=== PATIENT | female | born 1965 | race Asian ===

== ENCOUNTER 2020-09-23 10:29 | Inpatient (IN) | payer OTHER ==
[~2020-09-23] VITALS: Ht 152.4 cm; Wt 65.1 kg
[2020-09-23 10:35] VITALS: BP 124/86
[2020-09-23 11:21] LABS: ABSOLUTE NEUTROPHILS 3.5 thou/uL (1.4-8.2); EOSINOPHILS 1.3 % (0.0-3.0); HEMATOCRIT 53.1 % (37.0-47.0); HEMOGLOBIN 17.1 gm/dL (12.0-15.0); LYMPHOCYTES 29.2 % (24.0-44.0); MCH 29.7 pg (26.0-34.0); MCHC 32.3 g/dL (28.0-37.0); MONOCYTES 8.9 % (1.0-8.0); PLATELET COUNT 249 thou/uL (150-400); POLYS 59.6 % (36.0-66.0); RBC 5.77 mil/uL (4.20-5.00); RDW 14.6 % (10.5-14.5); WBC 5.9 thou/uL (4.0-11.0)
[2020-09-23 11:26] LABS: CALCIUM 9.2 mg/dL (8.5-10.1); CREATININE 1.2 mg/dL (0.6-1.0); POTASSIUM 3.5 mmol/L (3.5-5.1)
[2020-09-23 11:37] LABS: ALBUMIN 2.7 g/dL (3.4-5.0); TOTAL BILIRUBIN 0.9 mg/dL (0.2-1.0); TOTAL PROTEIN 7.1 g/dL (6.4-8.2); TROPONIN-I 0.16 ng/mL (<0.06)
[2020-09-23 14:27] VITALS: BP 118/82
[2020-09-23 14:37] VITALS: BP 122/76
--- NOTE | 2020-09-23 15:24 | 2DMMODE ---
[facility] [place] [address] 2 D/M-MODE ECHOCARDIOGRAM Name: ANDIE CASILLAS Room #: 170-8 ADM IN .R.#: [id number] Admission: 09/23/20 Attend Phys: Placido Keith MD Discharge: Date of : 67 Report #: [id number] THIS REPORT FOR: cc: ROXANNA - No family physician/PCP ROXANNA - No family physician/PCP Cristino Mckeon MD ~ APPROVED REPORT Study performed: 09/23/2020 14:15:20 EXAM: Comprehensive 2D, Doppler, and color-flow Echocardiogram Patient Location: ER Status: routine BSA: 1.60 HR: 120 bpm BP: 118/82 mmHg Rhythm: Tachycardia Other Information Study Quality: Good Echo Enhancing Agent Indication: Endocardial border delineation/Rule out thrombus Agent(s) / Amount(s) Used: Optison 4 cc 2D Dimensions RVDd: 37.44 mm IVSd: 7.84 (7-11mm) LVOT Diam: 18.79 (18-24mm) LVDd: 55.14 mm PWd: 8.90 (7-11mm) Ascending Ao: 31.96 (22-36mm) LVDs: 50.32 (25-40mm) Left Atrium: 36.59 (27-40mm) Aortic Root: 27.48 mm Volumes Left Atrial Volume (Systole) Single Plane 4CH: 44.77 mL Single Plane 2CH: 62.19 mL LA ESV Index: 36.00 mL/m2 Aortic Valve AoV Peak Waldo.: 0.91 m/s AO Peak Gr.: 3.32 mmHg LVOT Max P.53 mmHg LVOT Max V: 0.62 m/s [facility] [address] [place] [address] 2 D/M-MODE ECHOCARDIOGRAM Name: ANDIE CASILLAS Room #: 170-8 [facility] IN ..#: [id number] Admission: 09/23/20 Attend Phys: Placido Keith, Discharge: Date of : 67 Report #: [id number] SIM Vmax: 1.88 cm2 Mitral Valve MV Decel. Time: 79.32 ms MV E Max Waldo.: 1.34 m/s Pulmonary Valve PV Peak Waldo.: 0.70 m/s PV Peak Gr.: 1.94 mmHg Tricuspid Valve TR Peak Waldo.: 3.17 m/s RAP Estimate: 15.00 mmHg TR Peak Gr.: 40.24 mmHg PA Pressure: 55.00 mmHg Left Ventricle Left ventricle is at the upper limits of normal. There is global hypokinesis of the left ventricle. There is normal left ventricular wall thickness. Left ventricular systolic function is severely decreased. Apical thrombus is present. LVEF is 20%. This study is not technically sufficient to allow evaluation of the LV diastolic function. Right Ventricle The right ventricle is normal size. Right ventricle is mildly hypokinetic. Atria Mild biatrial enlargement. Aortic Valve The aortic valve is normal in structure. Mildly calcified. Trace aortic regurgitation. There is no aortic valvular stenosis. Mitral Valve The mitral valve is normal in structure. Mild to moderate mitral regurgitation. Tricuspid Valve The tricuspid valve is normal in structure. Mild to moderate tricuspid regurgitation. Estimated PAP is 55mmHg. Pulmonic Valve The pulmonary valve is normal in structure. Mild pulmonic regurgitation. Great Vessels [facility] [address] [place] [address] 2 D/M-MODE ECHOCARDIOGRAM Name: ANDIE CASILLAS Room #: 170-8 ADM IN M.R.#: [id number] Admission: 09/23/20 Attend Phys: Placido Keith, Discharge: Date of : 67 Report #: [id number] The aortic root is normal in size. The ascending aorta is normal in size. IVC is dilated and collapses >50% with inspiration. Pericardium Small Pericardial effusion. Bilateral pleural effusions noted. <Conclusion> Left ventricle is at the upper limits of normal. Left ventricular systolic function is severely decreased. LVEF is 20%. There is global hypokinesis of the left ventricle. The right ventricle is normal size. Right ventricle is mildly hypokinetic. Mild biatrial enlargement. The aortic valve is normal in structure. Mildly calcified. Trace aortic regurgitation. The mitral valve is normal in structure. Mild to moderate mitral regurgitation. The tricuspid valve is normal in structure. Mild to moderate tricuspid regurgitation. Estimated PAP is 55mmHg. The pulmonary valve is normal in structure. Mild pulmonic regurgitation. The aortic root is normal in size. Small Pericardial effusion. Bilateral pleural effusions noted. Apical thrombus is present. <ELECTRONICALLY SIGNED> By: Cristino Mckeon MD 09/23/20 1524 1524 1524 Cristino Mckeon MD /INF
[2020-09-23 15:30] VITALS: BP 125/88
[2020-09-23 16:20] LABS: FOLIC ACID 29.1 ng/mL (8.6-58.9)
[2020-09-23 20:30] VITALS: BP 100/67
[2020-09-24 00:31] VITALS: BP 101/79
[2020-09-24 02:18] LABS: URINE BILIRUBIN 1+ (Negative); URINE BLOOD NEGATIVE (Negative); URINE CLARITY CLEAR; URINE COLOR YELLOW; URINE GLUCOSE-RANDOM* NEGATIVE (Negative); URINE KETONES NEGATIVE (Negative); URINE LEUKOCYTES-REFLEX TRACE (Negative); URINE NITRITE-REFLEX NEGATIVE (Negative); URINE PROTEIN (DIPSTICK) 1+ (Negative)
[2020-09-24 02:26] LABS: SQUAMOUS 4-10 Moderate /LPF (0-3)
[2020-09-24 02:27] LABS: BACTERIA-REFLEX 1-9 Few /HPF (None Seen); CRYSTALS None Seen /LPF (None Seen); HYALINE CASTS 0-3 Few /LPF (None Seen); MUCUS 0-3 Light strn/LPF (None Seen); URINE RBC 0-2 Rare /HPF (0-2); URINE WBC-REFLEX 0-5 Rare /HPF (0-5)
[2020-09-24 04:45] VITALS: BP 104/74
[2020-09-24 05:14] LABS: BASOPHILS 1.3 % (0.0-2.0); EOSINOPHILS 2.3 % (0.0-3.0); HEMATOCRIT 50.9 % (37.0-47.0); HEMOGLOBIN 16.4 gm/dL (12.0-15.0); LYMPHOCYTES 38.2 % (24.0-44.0); MCH 29.9 pg (26.0-34.0); MCHC 32.2 g/dL (28.0-37.0); MCV 92.9 fL (80.0-100.0); MONOCYTES 9.9 % (1.0-8.0); PLATELET COUNT 254 thou/uL (150-400); POLYS 48.3 % (36.0-66.0); RBC 5.48 mil/uL (4.20-5.00); RDW 14.2 % (10.5-14.5); WBC 6.3 thou/uL (4.0-11.0)
[2020-09-24 05:18] LABS: ANION GAP 7 mmol/L (7-16); BUN 12 mg/dL (7-18); CHLORIDE 101 mmol/L (98-107); CHOLESTEROL 224 mg/dL (<200); CO2 32 mmol/L (21-32); CREATININE 1.1 mg/dL (0.6-1.0); GLUCOSE 130 mg/dL (74-106); HDL CHOLESTEROL 65 mg/dL (>40); LDL CHOLESTEROL 146 mg/dL (<100); MAGNESIUM 1.1 mg/dL (1.8-2.4); SODIUM 140 mmol/L (136-145); TC:HDL 3.4 Ratio (Not establshd); TRIGLYCERIDE 68 mg/dL (<150); VLDL 14 mg/dL (<40)
[2020-09-24 05:53] LABS: POTASSIUM 2.7 mmol/L (3.5-5.1); SERUM ASSESSMENT Clear
--- NOTE | 2020-09-24 07:11 | EKG ---
[address] [place] [address] ELECTROCARDIOGRAM REPORT Name: ANDIE CASILLAS Room #: 215- ADM IN M.R.#: [id number] Admission: 09/23/20 Attend Phys: Placido Keith MD Discharge: Date of : 67 Report #: [id number] [facility] ED Test Date: 2020-09-23 Test Time: 10:40:04 Pat Name: ANDIE CASILLAS Department: Room: [facility] Gender: F Distribution Manager: MELODY : 1965 Requested By: Mio Childs Order Number: [id number] MD: Jose Carlos Kiran Measurements Intervals [place] Rate: 125 P: -22 AL: 194 QRS: -21 QRSD: 79 T: 142 QT: 323 QTc: 466 Interpretive Statements Sinus tachycardia Borderline prolonged AL interval LAE, consider biatrial enlargement Borderline left axis deviation Anterior infarct, old Nonspecific T abnormalities, lateral leads No previous ECG available for comparison Electronically Signed On 09-24-2020 7:10:50 JD EDWARDS DEVELOPER by Jose Carlos Kiran [email or web address] <ELECTRONICALLY SIGNED> By: Jose Carlos Kiran MD, FACC 09/24/20 0710 1040 1040 Jose Carlos Kiran MD, [facility] /EPI
[2020-09-24 07:42] VITALS: BP 115/82
[2020-09-24 08:25] VITALS: BP 115/82
[2020-09-24 11:46] VITALS: BP 101/713
[2020-09-24 20:15] VITALS: BP 103/71
[2020-09-25 00:01] VITALS: BP 111/70
[2020-09-25 03:30] LABS: HEMATOCRIT 50.9 % (37.0-47.0); HEMOGLOBIN 16.6 gm/dL (12.0-15.0); MCH 29.8 pg (26.0-34.0); MCHC 32.7 g/dL (28.0-37.0); MCV 91.3 fL (80.0-100.0); RBC 5.58 mil/uL (4.20-5.00); RDW 14.3 % (10.5-14.5); WBC 8.3 thou/uL (4.0-11.0)
[2020-09-25 04:06] LABS: ALBUMIN 2.3 g/dL (3.4-5.0); CALCIUM 8.7 mg/dL (8.5-10.1); CREATININE 1.1 mg/dL (0.6-1.0); MAGNESIUM 1.4 mg/dL (1.8-2.4); TOTAL BILIRUBIN 1.3 mg/dL (0.2-1.0); TOTAL PROTEIN 6.2 g/dL (6.4-8.2); TROPONIN-I 0.16 ng/mL (<0.06)
[2020-09-25 04:10] LABS: POTASSIUM 3.5 mmol/L (3.5-5.1)
[2020-09-25 04:45] VITALS: BP 106/79
[2020-09-25 07:30] VITALS: BP 102/62
[2020-09-25 11:31] VITALS: BP 79/49
[2020-09-25 11:39] LABS: GLYCOHEMOGLOBIN (HGB A1C) 12.9
[2020-09-25 15:15] VITALS: BP 94/65
[2020-09-25 19:49] VITALS: BP 95/69
[2020-09-26] VITALS (8 sets, daily range): BP systolic 80–108; BP diastolic 54–76
[2020-09-26 03:46] LABS: CALCIUM 8.4 mg/dL (8.5-10.1)
[2020-09-27 03:05] LABS: GLYCOHEMOGLOBIN (HGB A1C) 13.7 % (4.8-5.6)
[2020-09-27 04:01] VITALS: BP 91/58
[2020-09-27 07:33] VITALS: BP 105/75
--- NOTE | 2020-09-27 07:36 | EKG ---
[address] [address] ELECTROCARDIOGRAM REPORT Name: ANDIE CASILLAS Room #: 215-P ADM IN M.R.#: [id number] Admission: 09/23/20 Attend Phys: Placido Keith MD Discharge: Date of : 67 Report #: [id number] [facility] Test Date: 2020-09-25 Test Time: 07:21:15 Pat Name: ANDIE CASILLAS Department: Room: 215 Gender: F Patient Account Liaison: MARGOT : 1965 Requested By: Robyn Juarez Order Number: [id number] MD: Jose Carlos Kiran Measurements Intervals [place] Rate: 84 P: 31 [place]: 159 QRS: -38 QRSD: 96 T: 267 QT: 441 QTc: 522 Interpretive Statements Sinus rhythm Left axis deviation Anterolateral infarct, age indeterminate Prolonged QT interval Compared to ECG 09/23/2020 10:40:04 Prolonged QT interval now present Sinus tachycardia no longer present T-wave abnormality no longer present Myocardial infarct finding still present Electronically Signed On 09-27-2020 7:36:26 REAL ESTATE UTILIZATION OFFICER by Jose Carlos Kiran [email or web address] <ELECTRONICALLY SIGNED> By: Jose Carlos Kiran MD, FAC 09/27/2036 0 0 Jose Carlos Kiran MD, FAC /EPI
--- NOTE | 2020-09-27 07:37 | EKG ---
[address] [address] ELECTROCARDIOGRAM REPORT Name: ANDIE CASILLAS Room #: 215-P ADM IN M.R.#: [id number] Admission: 09/23/20 Attend Phys: Placido Keith MD Discharge: Date of : 67 Report #: [id number] [facility] Test Date: 2020-09-25 Test Time: 21:01:48 Pat Name: ANDIE CASILLAS Department: Room: 215 Gender: F B2B Sales Consultant: DEJUAN : 1965 Requested By: Neto Young Order Number: [id number] MD: Jose Carlos Kiran Measurements Intervals [place] Rate: 81 P: 0 TN: 163 QRS: 81 QRSD: 85 T: 131 QT: 417 QTc: 484 Interpretive Statements Sinus rhythm Probable left atrial enlargement Probable anterior infarct, age indeterminate Lead(s) I were not used for morphology analysis Compared to ECG 09/25/2020 07:21:15 Left-axis deviation no longer present Prolonged QT interval no longer present Myocardial infarct finding still present Electronically Signed On 09-27-2020 7:37:53 MANUSCRIPTS CURATOR by Jose Carlos Kiran [email or web address] <ELECTRONICALLY SIGNED> By: Jose Carlos Kiran MD, FACC 09/27/20 0737 00 00 Jose Carlos Kiran MD, FAC /EPI
[2020-09-27 09:09] LABS: HEMATOCRIT 50.8 % (37.0-47.0); HEMOGLOBIN 16.4 gm/dL (12.0-15.0); MCH 29.6 pg (26.0-34.0); MCHC 32.3 g/dL (28.0-37.0); MCV 91.7 fL (80.0-100.0); RBC 5.55 mil/uL (4.20-5.00); RDW 14.4 % (10.5-14.5); WBC 5.6 thou/uL (4.0-11.0)
[2020-09-27 09:25] LABS: CALCIUM 8.1 mg/dL (8.5-10.1); MAGNESIUM 1.3 mg/dL (1.8-2.4); POTASSIUM 3.6 mmol/L (3.5-5.1)
[2020-09-27 11:52] VITALS: BP 99/72
[2020-09-27 15:23] VITALS: BP 107/77
[2020-09-27 19:24] VITALS: BP 91/63
[2020-09-27 23:31] VITALS: BP 105/74
[2020-09-28 04:19] VITALS: BP 109/73
[2020-09-28 05:00] LABS: HEMATOCRIT 47.3 % (37.0-47.0); HEMOGLOBIN 15.2 gm/dL (12.0-15.0); MCH 29.7 pg (26.0-34.0); MCHC 32.2 g/dL (28.0-37.0); MCV 92.2 fL (80.0-100.0); RBC 5.13 mil/uL (4.20-5.00); RDW 14.1 % (10.5-14.5); WBC 5.3 thou/uL (4.0-11.0)
[2020-09-28 05:14] LABS: CALCIUM 8.3 mg/dL (8.5-10.1); CREATININE 1.2 mg/dL (0.6-1.0); MAGNESIUM 1.6 mg/dL (1.8-2.4); POTASSIUM 3.2 mmol/L (3.5-5.1)
[2020-09-28 07:20] VITALS: BP 102/74
[2020-09-28 08:00] VITALS: BP 102/74
[2020-09-28] MEDS ORDERED: COZAAR 25 MG TA25 M1 PO (11:23)
[2020-09-28] MEDS ORDERED: TEST STRIPS1 EACH SUBQ (11:23)
[2020-09-28] MEDS ORDERED: DEMADEX20 MG PO (11:23)
[2020-09-28] MEDS ORDERED: CARVEDILOL3.125 MG PO (11:23)
[2020-09-28] MEDS ORDERED: LIPITOR40 MG PO (11:23)
[2020-09-28] MEDS ORDERED: ASA81BEC PO (11:23)
[2020-09-28] MEDS ORDERED: ACCU-CHEK FAST1 EACH SUBQ (11:23)
[2020-09-28] MEDS ORDERED: LANTUS SOL100 UNIT/1 SUBQ (11:23)
[2020-09-28] MEDS ORDERED: EFFIENT10 MG PO (11:23)
--- NOTE | 2020-09-28 12:30 | 2DMMODE ---
[facility] [place] [facility] [place] [place] [address] 2 D/M-MODE ECHOCARDIOGRAM Name: ANDIE CASILLAS Room #: 215-P ADM IN M.R.#: [id number] Admission: 09/23/20 Attend Phys: Placido Keith MD Discharge: Date of : 67 Report #: [id number] THIS REPORT FOR: cc: FAM - No family physician/PCP FAM - No family physician/PCP Cristino Mckeon MD ~ APPROVED REPORT Study performed: 09/28/2020 11:24:32 EXAM: Comprehensive 2D, Doppler, and color-flow Echocardiogram Patient Location: Bedside Room #: 215 Status: routine BSA: 1.62 HR: 79 bpm BP: 102/74 mmHg Rhythm: NSR Other Information Study Quality: Good Indications CAD Cardiomyopathy 2D Dimensions IVC: 23.00 mm Tricuspid Valve TR Peak Waldo.: 2.63 m/s TR Peak Gr.: 27.66 mmHg PA Pressure: 38.00 mmHg Left Ventricle Left ventricle is dilated. There is severe global hypokinesis of the left ventricle. There is normal left ventricular wall thickness. Left ventricular ejection fraction is severely decreased. Left ventricular apical thrombus is present. LVEF is 15-20%. This study is not technically sufficient to allow evaluation of the LV diastolic function. Right Ventricle The right ventricle is normal size. Right ventricle is [facility] [place] [facility] [address] [place] [address] 2 D/M-MODE ECHOCARDIOGRAM Name: ANDIE CASILLAS Room #: 215-P ADM IN M.R.#: [id number] Admission: 09/23/20 Attend Phys: Placido Keith, Discharge: Date of : 67 Report #: [id number] hypokinetic. Atria Left atrium is dilated. Right atrium is dilated. Aortic Valve The aortic valve is normal in structure. Trace aortic regurgitation. There is no aortic valvular stenosis. Mitral Valve The mitral valve is normal in structure. Mild mitral regurgitation. No evidence of mitral valve stenosis. Tricuspid Valve The tricuspid valve is normal in structure. There is mild to moderate tricuspid regurgitation. Estimated PAP 38 mmHg. There is mild pulmonary hypertension. Pulmonic Valve The pulmonary valve is normal in structure. Great Vessels The aortic root is normal in size. IVC is dilated and collapses <50% with inspiration. Pericardium There is no pericardial effusion. <Conclusion> Left ventricle is dilated. LVEF is 15-20%. There is severe global hypokinesis of the left ventricle. Right ventricle is hypokinetic. Left atrium is dilated. Right atrium is dilated. The aortic valve is normal in structure. Trace aortic regurgitation. The mitral valve is normal in structure. Mild mitral regurgitation. The tricuspid valve is normal in structure. There is mild to moderate tricuspid regurgitation. Estimated PAP 38 mmHg. There is mild pulmonary hypertension. [facility] [place] [facility] [address] [place] [address] 2 D/M-MODE ECHOCARDIOGRAM Name: ERMA CASILLASYULIANALiz Room #: 215-P ADM IN M.R.#: [id number] Admission: 09/23/20 Attend Phys: Placido Keith, Discharge: Date of : 67 Report #: [id number] There is no pericardial effusion. Left ventricular APICAL THROMBUS is present. <ELECTRONICALLY SIGNED> By: Cristino Mckeon MD 09/28/20 1230 1230 1230 Cristino Mckeon MD /INF
[2020-09-28 15:20] VITALS: BP 106/80
--- NOTE | 2020-09-28 16:44 | CATHLAB ---
[facility] [place] [address] [place] [address] INVASIVE PROCEDURE REPORT Name: ANDIE CASILLAS Room #: 215-P ADM IN M.R.#: [id number] Admission: 09/23/20 Attend Phys: Placido Keith MD Discharge: Date of : 67 Report #: [id number] THIS REPORT FOR: cc: FAM - No family physician/PCP FAM - No family physician/PCP Christopher Otero MD [facility] ~ APPROVED REPORT Study performed: 09/24/2020 13:59:10 Patient Details Patient Status: In-Patient Room #: The patient is a 55 year-old female Event Personnel Christopher Otero [employer]mer, Antwan Salmon RN RN, Ketty Cohn RTR, SCHOOL CHILD CARE ATTENDANT Scrub, Von Rothman RTR Monitor, Laura Navarro RN RN, Thompson Hong RTR Scrub Procedures Performed Art Access - R femoral artery* Vernon Access - R femoral vein Right and Left Heart Cath w/or w/o Coronarie [id number] [facility] Place w/wo Plasty Single LAD 058536 00314 Initial Mod Sed Same Phys/QHP Gr5y [id number] 46138 Mod Sed Same Phys/QHP Ea 535178 Hemostasis w/ Mynx Indication Chest pain Procedure Narrative The Right Groin^ was infiltrated with 1% Lidocaine subcutaneous anesthesia. A Right Heart Catheterization was performed with a 7 Fr. [place]-Hemal catheter and pressure were recorded. Cardiac outputs were obtained by the Thermal Dilution method. A PINNACLE 6FR Sheath #[id number] sheath was inserted into the RFA^. Coronary angiography was performed using coronary diagnostic catheters. The right coronary system was accessed and visualized with a JR4 catheter. The left coronary system was accessed and visualized with a JL4 catheter. The left ventricle was accessed and visualized with a PIGTAIL catheter. Left ventriculogram was performed in 30 degree projection. Closure device was deployed with a 6 Fr MYNXGRIP 6/7F #[id number]. The patient tolerated the procedure well and there were no complications associated with the procedure. There was no hematoma. [address] [address] INVASIVE PROCEDURE REPORT Name: ANDIE CASILLAS Room #: 215-P [facility]#: [id number] Admission: 09/23/20 Attend Phys: Placido Keith, Discharge: Date of : 67 Report #: [id number] Intraoperative Conscious Sedation Sedation start time: 1446 Case end Time: 1600 Fentanyl 25 mcg Versed 0.5 mg Fluoro Time: 7.30 minutes Dose: DAP 9336.40 cGycm2 1351 mGy Contrast Type and Amount: Visipaque 175 ml Hemodynamics The right atrial mean pressure is 20 mmHg. The right ventricular pressure is 51/0 mmHg. The mean pulmonary capillary wedge pressure is 18 mmHg. The left ventricular pressure is 85/8 mmHg with a mean of mmHg. The left ventricular end diastolic pressure is 27 mmHg. The cardiac output using thermo method is 1.65 L/min. The cardiac index using thermo method is 1.03 L/min/m2. PCI Technique Lesion Percutaneous coronary intervention was performed on the proximal left anterior descending artery segment. A LAUNCHER 6FR EBU 3.5 #[id number] Guide Catheter was used to engage the ostium. A Luge Wire .014 x 182CM #[id number] Interventional Guidewire was used to cross the lesion. BALLOON DILATION A Balloon catheter Sprinter OTW 2.0 x 10 #[id number] was inserted and inflated up to 8.00atm for 14seconds. Additional Inflation: 8.00atm for 10seconds. Additional Inflation: 8.00atm for 16seconds. ADDITIONAL INFLATIONS WERE 12 PAIGE FOR 16 SECS AND 16 ATMS FOR 21 SECS STENT DEPLOYMENT A drug-eluting stent RESOLUTE YULY OTW 2.5 X 18 #[id number] was inserted and inflated up to 14.00atm for 14seconds. Conclusion #1. Successful PTCA stent of a totally occluded proximal LAD. Placement of a 2.5 x 18 resolute drug-eluting stent HANS grade III flow in a diffusely diseased LAD. #2 left main widely patent giving rise to LAD and circumflex #3 circumflex nondominant with an eccentric 50 to 60% lesion in the mid distal 70-80 filling 1 moderate size OM. #4 large dominant right coronary artery extensive distribution widely patent giving some collateral filling to what appears to be a distal anterior apical LAD some retrograde filling through the septal system of the proximal LAD. [facility] [address] [place] [address] INVASIVE PROCEDURE REPORT Name: ANDIE CASILLAS Room #: 215-P [facility] IN M.R.#: [id number] Admission: 09/23/20 Attend Phys: Placido Keith, Discharge: Date of : 67 Report #: [id number] #5 dilated left ventricle with severe global hypokinesis EF 10 to 15% range with mild MR. This LV dysfunction appears to be out of proportion to the amount of coronary disease noted above. #6 successful right heart catheterization with significant elevation pulmonary pressures. Cardiac output by thermodilution. See above hemodynamics. Recommendations and plan: Continue aggressive risk factor modification. Aggressive diuresis. Patient's hemodynamics improved after opening this LAD vessel with the PTCA stent noted above. However the degree of LV dysfunction again is out of proportion to the amount of coronary disease. Transferred to CCU and improved hemodynamic status. The circumflex OM may be a candidate for intervention at a later date. Close follow-up. <ELECTRONICALLY SIGNED> By: Christopher Otero MD, FACC 09/28/201642 42 42 Christopher Otero MD, FACC /INF
[2020-09-28 19:27] VITALS: BP 109/79
== END 2020-09-28 22:00 | disposition home or self-care (01) | DRG 246 ==
LOC: ER 10:29 → EROBS 14:05 → 2N 15:34
PROVIDERS: Emergency Medicine; Internal Medicine Cardiovascular Disease; Nurse Practitioner; Nurse Practitioner Adult Health; Nurse Practitioner Family; ADMIT Internal Medicine; ATTEND Internal Medicine
PROC: 4A023N8 Measurement of Cardiac Sampling and Pressure, Bilateral, Percutaneous Approach (ICD-10-PCS; principal; 2020-09-24)
PROC: B211YZZ Fluoroscopy of Multiple Coronary Arteries using Other Contrast (ICD-10-PCS; principal; 2020-09-24)
PROC: B215YZZ Fluoroscopy of Left Heart using Other Contrast (ICD-10-PCS; principal; 2020-09-24)
PROC: 027034Z Dilation of Coronary Artery, One Artery with Drug-eluting Intraluminal Device, Percutaneous Approach (ICD-10-PCS; principal; 2020-09-24)
DX: I21.4 Non-ST elevation (NSTEMI) myocardial infarction (principal); I50.21 Acute systolic (congestive) heart failure; N17.9 Acute kidney failure, unspecified; E44.0 Moderate protein-calorie malnutrition; I31.3 Pericardial effusion (noninflammatory); I42.9 Cardiomyopathy, unspecified; E11.9 Type 2 diabetes mellitus without complications; I24.9 Acute ischemic heart disease, unspecified; Z60.2 Problems related to living alone; E78.5 Hyperlipidemia, unspecified; I34.0 Nonrheumatic mitral (valve) insufficiency; E87.6 Hypokalemia; Z20.822 Contact with and (suspected) exposure to COVID-19; I11.0 Hypertensive heart disease with heart failure; E83.42 Hypomagnesemia; I95.9 Hypotension, unspecified; T50.2X5A Adverse effect of carbonic-anhydrase inhibitors, benzothiadiazides and other diuretics, initial encounter; Y92.89 Other specified places as the place of occurrence of the external cause; Z68.28 Body mass index [BMI] 28.0-28.9, adult; Z79.82 Long term (current) use of aspirin; Z79.899 Other long term (current) drug therapy
CPT/HCPCS: 10081